=== PATIENT | male | born 1970 | race African-American/Black ===

== ENCOUNTER 2018-08-22 05:03 | Emergency (ER) | payer MEDICAID ==
[~2018-08-22] VITALS: Ht 170.2 cm; Wt 64.0 kg
[2018-08-22] MEDS ORDERED: KETOROLAC 30MG/ML VIAL IV STA (07:02)
[2018-08-22] MEDS ORDERED: SODIUM CHLORIDE 0.9% 1,000 ML IV ONE (07:02)
[2018-08-22] MEDS ORDERED: ONDANSETRON HCL 4MG/2ML INJ IV STA (07:02)
[2018-08-22 08:15] LABS: BASOPHILS % 0.3 % (0.0-2.0); EOSINOPHILS % 0.1 % (0.0-5.0); HEMATOCRIT. 55.4 % (42.0-52.0); HEMOGLOBIN. 18.7 g/dL (14.0-18.0); LYMPHOCYTES % 13.5 % (20.0-50.0); MEAN CORPUSCULAR HEMOGLOBIN 30.1 pg (28.0-32.0); MEAN CORPUSCULAR VOLUME 89.4 fL (80.0-94.0); MEAN PLATELET VOLUME 8.8 fl (7.4-10.4); MONOCYTES % 9.4 % (2.0-8.0); NEUTROPHILS % 76.7 % (40.0-76.0); PLATELET 227 x1000/uL (130-400); RED CELL DISTRIBUTION WIDTH 14.3 % (11.6-14.6)
[2018-08-22 08:25] LABS: CHLORIDE 95 mEq/L (98-107)
[2018-08-22] MEDS ORDERED: FAMOTIDINE 20MG/2ML VIAL IV ONE (10:15)
[2018-08-22 10:18] LABS: CLARITY URINE CLOUDY (CLEAR); COLOR URINE DARK YELLOW (YELLOW); KETONES URINE 1+ (NEGATIVE); LEUKOCYTE ESTERASE URINE 1+ (NEGATIVE); NITRITE URINE NEGATIVE (NEGATIVE); OCCULT BLOOD URINE 1+ (NEGATIVE); PROTEIN URINE 1+ (NEGATIVE); SPECIFIC GRAVITY URINE 1.038 (1.005-1.030); UROBILINOGEN URINE 0.2 E.U./dL (0.2-1.0)
[2018-08-22 11:30] VITALS: BP 138/64
== END 2018-08-22 11:59 | disposition home or self-care (01) ==
LOC: ER 07:14
DX: R53.1 Weakness (principal); M79.10 Myalgia, unspecified site; R11.10 Vomiting, unspecified; F17.200 Nicotine dependence, unspecified, uncomplicated
CPT/HCPCS: 36415; 71045; 74176; 80053; 81003; 83690; 83880; 84443; 84484; 85025; 87086; 93005; 96361; 96374; 96375; 99284; J1885; J2405; J3490; J7030

== ENCOUNTER 2024-09-20 05:25 | Emergency (ER) | payer MEDICAID ==
[~2024-09-20] VITALS: Ht 170.2 cm; Wt 81.0 kg
[2024-09-20 05:35] VITALS: BP 162/108; PULSE 100; TEMP 97.7; O2SAT 96
[2024-09-20 05:40] VITALS: RESP 20; O2SAT 100
[2024-09-20 07:19] LABS: BASOPHILS % 0.6 % (0.0-2.0); DIFFERENTIAL COMMENT 0; EOSINOPHILS % 0.3 % (0.0-5.0); HEMATOCRIT. 57.2 % (42.0-52.0); LYMPHOCYTES % 20.1 % (20.0-50.0); MEAN CORPUSCULAR HEMOGLOBIN 30.2 pg (28.0-32.0); MEAN CORPUSCULAR HGB CONC 33.2 g/dL (31.0-37.0); MEAN CORPUSCULAR VOLUME 90.9 fL (80.0-94.0); MEAN PLATELET VOLUME 8.4 fl (7.4-10.4); MONOCYTES % 12.2 % (2.0-8.0); NEUTROPHILS % 66.8 % (40.0-76.0); PLATELET 269 x1000/uL (130-400); RED BLOOD CELL COUNT 6.29 mill/uL (4.7-6.1); WHITE BLOOD COUNT 6.7 x1000/uL (4.5-11.0)
[2024-09-20] MEDS: DICYCLOMINE 10 MG/5 ML ORAL SYR PO ONE (07:25)
[2024-09-20] MEDS: ONDANSETRON 4MG ODT PO STA (07:25)
[2024-09-20 07:26] LABS: CHLORIDE 100 mEq/L (98-107); POTASSIUM 4.1 mEq/L (3.5-5.1); SODIUM 137 mEq/L (136-145)
[2024-09-20] MEDS: MAGNESIUM/ALUMINUM HYDROXIDE/SIMETHICONE 30ML UDC PO ONE (07:26)
[2024-09-20 07:27] LABS: CARBON DIOXIDE 31 mEq/L (21-32)
[2024-09-20 07:28] LABS: CALCIUM 10.2 mg/dL (8.7-10.4)
[2024-09-20 07:32] LABS: CREATININE 1.3 mg/dL (0.6-1.3); GLUCOSE 131 mg/dL (70-105); UREA NITROGEN BLOOD 19 mg/dL (9-23)
[2024-09-20 07:33] LABS: TROPONIN I HIGH SENSITIVITY 14 ng/L (3.0-53)
[2024-09-20] MEDS ORDERED: ONDA4TAB50 MT (07:59)
== END 2024-09-20 08:17 | disposition home or self-care (01) ==
LOC: ER 05:36
DX: R10.84 Generalized abdominal pain (principal); R11.2 Nausea with vomiting, unspecified; R07.9 Chest pain, unspecified; F12.90 Cannabis use, unspecified, uncomplicated; Z98.890 Other specified postprocedural states
CPT/HCPCS: 99285; 71045; 80048; 83690; 85025; 84484; 36415; 93005; Q0162